=== PATIENT | male | born 1955 | race Caucasian/White ===

== ENCOUNTER → 2016-12-11 | Outpatient (CLI) | payer OTHER ==
--- NOTE | 2016-12-11 14:20 | US ---
Ultrasound and Venous Duplex Doppler Study of the Right Lower Extremity Clinical History: 61-year-old male with right leg pain. Rule out DVT. The patient has been recently i mmobile for 3 days with the flu, and the patient's knee pain worsens when he squats. ICD 10 Diagnostic Code: M79.661. Technique: A high frequency transducer was used for imaging and Doppler study of the veins of the [facility] lower extremity. Pulsed Doppler and color Doppler were utilized, along with various maneuvers t o assess flow in the veins. Cursory evaluation of the contralateral common femoral vein was obtained for comparison purposes. Comparison Study: None. Findings: The deep veins of the right lower extremity are normally compressible between the groin an d the upper calf, and have normal Doppler waveforms. There is no sonographic evidence of deep venous thrombosis. The greater saphenous vein is compressible. The popliteal fossa is notable for a oval-sha ped anechoic Mahmood's cyst measuring 2.6 x 0.7 x 1.4 cm. There is no intrinsic septation or vascular f low. Impression: 1. There is no sonographic evidence of deep or superficial vein thrombosis in the right lower extremi ty. 2. There is a 2.6 cm Mahmood cyst in the posteromedial popliteal fossa. As requested, results were conveyed to Mary, the medical van driver for Dr. Buck Agosto. A test result has been communicated to a licensed care provider and documented in the [employer] Critical Result system on 12/11/2016 14:14, Message ID [id number].
== END ==
LOC: FIMAGING 13:16
PROVIDERS: ATTEND Internal Medicine
DX: M79.661 Pain in right lower leg (principal); M71.21 Synovial cyst of popliteal space [Baker], right knee